=== PATIENT | male | born 1985 | race Caucasian/White ===

== ENCOUNTER → 2023-06-16 15:08 | Outpatient (REF) | payer OTHER, SELFPAY | LOC: DHCBC MAIN 15:08 | PROVIDERS: ATTENDING PHYSICIAN Internal Medicine Cardiovascular Disease; FAMILY PHYSICIAN Family Medicine | DX: R07.9 Chest pain, unspecified (principal); R00.2 Palpitations | CPT/HCPCS: 93306 ==